=== PATIENT | female | born 1965 | race Caucasian/White ===

== ENCOUNTER → 2017-03-06 | Outpatient (CLI) | payer OTHER ==
[~2017-03-06] MED LIST: COLACE100 MG PO; DAILY VALUE1 EACH PO; PERCOCET 5/31 TABLET PO; PRAVACHOL80 MG PO; TRICOR145 MG PO; VITAMIN D31000 UNI2 PO
== END | disposition home or self-care (01) ==
LOC: CDC 12:59
DX: Z01.810 Encounter for preprocedural cardiovascular examination (principal)
CPT/HCPCS: 93000

== ENCOUNTER 2017-03-11 05:36 | Day surgery (SDC) | payer OTHER ==
[~2017-03-11] VITALS: Ht 165.1 cm; Wt 77.6 kg
[~2017-03-11 05:36] MED LIST changes: -COLACE100 MG PO; -PERCOCET 5/31 TABLET PO
[2017-03-11 06:51] VITALS: BP 109/70
[2017-03-11] MEDS ORDERED: PERCOCET 5/31 TABLET PO (08:40)
[2017-03-11] MEDS ORDERED: COLACE100 MG PO (08:40)
[2017-03-11 09:40] VITALS: BP 125/74
== END 2017-03-11 10:15 | disposition home or self-care (01) ==
LOC: SDC 05:36
PROC: 0JBM0ZZ Excision of Left Upper Leg Subcutaneous Tissue and Fascia, Open Approach (ICD-10-PCS; principal; 2017-03-11)
DX: D17.24 Benign lipomatous neoplasm of skin and subcutaneous tissue of left leg (principal); J45.909 Unspecified asthma, uncomplicated; E78.1 Pure hyperglyceridemia; Z88.0 Allergy status to penicillin
CPT/HCPCS: 88304; J0690; J2250; J3010; S0020